=== PATIENT | male | born 1960 | race Two or more races ===

== ENCOUNTER 2023-09-19 05:02 | Emergency (ER) | payer OTHER ==
[~2023-09-19] VITALS: Ht 160 cm; Wt 65.3 kg
[~2023-09-19 05:02] MED LIST: SIMVASTATIN20 MG
[2023-09-19] MEDS ORDERED: KAPSPARGO SPRIN25 MG (05:13)
[2023-09-19] MEDS ORDERED: COZAAR25 MG (05:13)
[2023-09-19] MEDS ORDERED: LEVO-T50 MCG (05:15)
[2023-09-19] MEDS ORDERED: KETO10TA2 PO (07:38)
[2023-09-19] MEDS ORDERED: NORFLEX100MG PO (07:38)
== END 2023-09-19 08:09 ==
LOC: ER 05:03
DX: M54.50 Low back pain, unspecified (principal); I10 Essential (primary) hypertension